=== PATIENT | male | born 1995 | race African-American/Black ===

== ENCOUNTER 2021-05-25 18:46 | Emergency (ER) | payer OTHER ==
[~2021-05-25] VITALS: Ht 180.3 cm; Wt 73.0 kg
[2021-05-25] MEDS ORDERED: IBUPROFEN 600MG TABLET PO STA (20:09)
[2021-05-25 21:41] VITALS: BP 138/79
[2021-05-25 21:42] LABS: CLARITY URINE CLEAR (CLEAR); COLOR URINE YELLOW (YELLOW); KETONES URINE 1+ (NEGATIVE); LEUKOCYTE ESTERASE URINE 1+ (NEGATIVE); NITRITE URINE NEGATIVE (NEGATIVE); OCCULT BLOOD URINE 1+ (NEGATIVE); PROTEIN URINE NEGATIVE (NEGATIVE); SPECIFIC GRAVITY URINE 1.016 (1.005-1.030); UROBILINOGEN URINE 0.2 E.U./dL (0.2-1.0)
[2021-05-25] MEDS ORDERED: MORPHINE SULFATE 4 MG/ML CPJ (NOT FOR IM USE) IV STA (21:54)
[2021-05-25] MEDS ORDERED: ONDANSETRON HCL 4MG/2ML INJ IV STA (21:54)
[2021-05-25] MEDS ORDERED: SODIUM CHLORIDE 0.9% 1,000 ML IV ONE (22:00)
[2021-05-25] MEDS ORDERED: IBUP-2029 MT (23:16)
[2021-05-25] MEDS ORDERED: T3 PO (23:16)
[2021-05-25] MEDS ORDERED: CEPH500C2 MT (23:16)
== END 2021-05-25 23:58 | disposition home or self-care (01) ==
LOC: ER 18:46
DX: N44.00 Torsion of testis, unspecified (principal)
CPT/HCPCS: 76870; 81003; 93976; 99284; J7030

== ENCOUNTER 2024-02-12 18:50 | Emergency (ER) | payer MEDICAID, OTHER ==
[~2024-02-12] VITALS: Ht 182.9 cm; Wt 77.0 kg
[~2024-02-12 18:50] MED LIST: CEPH500C2 MT; IBUP-2029 MT; T3 PO
[2024-02-12 19:03] VITALS: O2SAT 100
[2024-02-12 19:32] LABS: BASOPHILS % 0.7 % (0.0-2.0); EOSINOPHILS % 1.7 % (0.0-5.0); HEMATOCRIT. 42.3 % (42.0-52.0); LYMPHOCYTES % 28.1 % (20.0-50.0); MEAN CORPUSCULAR HEMOGLOBIN 26.8 pg (28.0-32.0); MEAN CORPUSCULAR HGB CONC 33.1 g/dL (31.0-37.0); MEAN PLATELET VOLUME 7.9 fl (7.4-10.4); MONOCYTES % 5.1 % (2.0-8.0); NEUTROPHILS % 64.4 % (40.0-76.0); PLATELET 230 x1000/uL (130-400); RED BLOOD CELL COUNT 5.22 mill/uL (4.7-6.1); RED CELL DISTRIBUTION WIDTH 13.8 % (11.6-14.6); WHITE BLOOD COUNT 5.4 x1000/uL (4.5-11.0)
[2024-02-12 19:55] LABS: CHLORIDE 106 mEq/L (98-107); POTASSIUM 4.4 mEq/L (3.5-5.1); SODIUM 140 mEq/L (136-145)
[2024-02-12 19:56] LABS: CARBON DIOXIDE 28 mEq/L (21-32)
[2024-02-12 19:57] LABS: CALCIUM 9.6 mg/dL (8.7-10.4)
[2024-02-12 20:01] LABS: CREATININE 1.4 mg/dL (0.6-1.3); GLUCOSE 121 mg/dL (70-105)
[2024-02-12 20:02] LABS: UREA NITROGEN BLOOD 9 mg/dL (9-23)
[2024-02-12 20:03] LABS: ALANINE AMINOTRANSFERASE 14 IU/L (10-49); ALBUMIN 4.7 g/dL (3.2-4.8); ASPARTATE AMINOTRANSFERASE 20 IU/L (<34)
[2024-02-12 20:04] LABS: BILIRUBIN DIRECT 0.2 mg/dL (<=3.0); BILIRUBIN TOTAL 0.7 mg/dL (0.1-1.0); PROTEIN TOTAL 6.8 g/dL (6.0-8.3)
[2024-02-12 23:20] LABS: CLARITY URINE CLEAR (CLEAR); COLOR URINE YELLOW (YELLOW); GLUCOSE URINE NEGATIVE (NEGATIVE); KETONES URINE NEGATIVE (NEGATIVE); LEUKOCYTE ESTERASE URINE TRACE (NEGATIVE); NITRITE URINE NEGATIVE (NEGATIVE); OCCULT BLOOD URINE NEGATIVE (NEGATIVE); PH URINE 6.5 (4.5-8.0); PROTEIN URINE NEGATIVE (NEGATIVE); SPECIFIC GRAVITY URINE 1.018 (1.005-1.030)
[2024-02-12 23:53] LABS: TROPONIN I HIGH SENSITIVITY < 4 ng/L (3.0-53)
[2024-02-13] MEDS ORDERED: FAMO20TA8 MT (00:06)
[2024-02-13 00:20] VITALS: BP 135/63; PULSE 71; RESP 16; TEMP 36.78072; O2SAT 100
[2024-02-13 00:36] LABS: RBC URINE 0-2 /hpf (0-2); SQUAMOUS EPITHELIAL CELL URINE NONE SEEN /lpf (RARE/1+); WBC URINE 0-2 /hpf (0-2)
[2024-02-13 00:37] LABS: BACTERIA URINE NONE SEEN
== END 2024-02-13 00:24 | disposition home or self-care (01) ==
LOC: ER 18:50
DX: R00.2 Palpitations (principal); K21.9 Gastro-esophageal reflux disease without esophagitis; Z79.899 Other long term (current) drug therapy
CPT/HCPCS: 36415; 71045; 80048; 80076; 81003; 83880; 84484; 85025; 87070; 87430; 93005; 99285